=== PATIENT | female | born 1940 | race American Indian/Alaskan Native ===

== ENCOUNTER 2019-06-24 19:38 | Emergency (ER) | payer MEDICAID ==
[~2019-06-24] VITALS: Ht 147.3 cm; Wt 55.0 kg
[2019-06-24] MEDS ORDERED: CLON-529 PO (22:01)
[2019-06-24 22:49] VITALS: BP 123/53
== END 2019-06-24 22:51 | disposition home or self-care (01) ==
LOC: ER 19:38
DX: I10 Essential (primary) hypertension (principal); Z79.899 Other long term (current) drug therapy
CPT/HCPCS: 93005; 99283; 99284